=== PATIENT | female | born 1990 | race African-American/Black ===

== ENCOUNTER 2016-06-08 16:25 | Emergency (ER) | payer MEDICAID, OTHER ==
[~2016-06-08] VITALS: Ht 172.7 cm; Wt 59.0 kg
[2016-06-08 19:00] VITALS: BP 136/86
[2016-06-09 09:42] LABS: Hepatitis B Surface Antibody Positive
== END 2016-06-08 19:21 | disposition home or self-care (01) ==
LOC: ER 16:29
DX: Z20.6 Contact with and (suspected) exposure to human immunodeficiency virus [HIV] (principal)
CPT/HCPCS: 36415; 86706; 86803; 87340